=== PATIENT | female | born 1995 | race Caucasian/White ===

== ENCOUNTER 2018-10-26 02:22 | Emergency (ER) | payer BC, OTHER ==
[~2018-10-26] VITALS: Ht 157.5 cm; Wt 56.7 kg
--- OUTSIDE RECORDS SUMMARY | 2018-10-26 02:28 | XMS REPORT | Continuity of Care Document ---
Author Author [facility] Address [address] [place], [place] [address] Phone Care Team Providers Care Old Testament Professor Name Role Phone Roosevelt Abad MD PCP Unavailable Allergies, Adverse Reactions, Alerts Substance Reaction Severity Status No Known Drug Allergies Unknown Active Medications Medication Instructions Dosage Effective Dates (start - stop) Status Comments Aleve 220 mg capsule - Active acetaminophen 325 mg tablet take 1 tablet by oral route every 4 hours as needed - Active Problems Condition Effective Dates (start - stop) Clinical Status Pelvic and perineal pain Procedures Procedure Date Office/outpatient visit,[facility] Results Test Name Date and Time Measure Units Reference Range Abnormal Flag Comments Unknown Advance Directives Directive Yes / No Effective Date File Name Unknown Encounters Encounter Description Practice Location Reason(s) For Visit Diagnoses Date Provider Care Team Members Office/outpatient visit,[facility] [place], [address], [place], [address], tel:[phone] [facility] pelvic pain (chief complaint) Pelvic and perineal pain Raven Lyman. [address] [place], [place], [address], [place]. tel:[phone] Referring Provider: Nura Farah [address] [place], [place], [address]. tel:[phone] [facility] [employer] [place], [address], [place], [address], tel: [phone] [facility] [place] Raven Lyman. [address] [place], [address], [place]. tel:[phone] Family History Family Member Diagnosis Age At Onset No family history of Thyroid Disorder No family history of Kidney Problems No family history of Cardiovascular Disease No family history of Stroke No family history of Diabetes No family history of Colon Cancer No family history of Epilepsy No family history of Lung Disease No family history of Breast Cancer No family history of Ovarian Cancer No family history of Osteoporosis No family history of Hypertension Immunizations Vaccine Date Status Comments Unknown Payers Payer name Insurance type Covered alliance party ID Authorization(s) [facility] KENA [id number] Social History Type Description Quantity Date Captured Alcohol Use Details No Caffeine Use Details Unknown Tobacco Use Status Never smoked tobacco Smoking Status Never smoker Vital Signs Date / Time: Height Weight BMI Pulse Rate Blood Pressure Temperature Respiratory Rate Body Surface Area Head Circumference BMI percentile 9:07 AM 62.00 in 131.30 lbs 24.16 kg/meter(2) 122/72 mm[Hg] Chief Complaint And Reason For Visit Most recent encounter only, dated '06/26/2017 09:00'. pelvic pain (chief complaint). Description: The pain started suddenly 5days. Severity level is moderate. It occurs continuously. Region of the pain is right lower quadrant. The pain radiates to the back. The patient describes her pain as sharp, and stabbing. This is a new problem for her. She is also experiencing dysmenorrhea. She denies abdominal distention, constipation, diarrhea, dysuria, fever, hematochezia, high risk sexual activity, intramenstrual bleeding, nausea, ovarian cysts, vaginal discharge and vomiting. pt states taking aleve around the clock for 5 daysand this has provided no relief. stats she had a CT 06/23 at ER and was told she may have ovarian cyst but would need pelvic sono to confirm. Reason For Referral Reason For Referral Unknown Plan Of Care Date Type Action Status Appointment Hui Villagran BOOKED Future Order: Radiology Order Pelvic Ultrasound ([id number]) Ordered Date Type Problem Goal Intervention Status Start Date Unknown. History Of Present Illness Encounter Date Complaint History Of Present Illness pelvic pain The pain started suddenly 5days. Severity level is moderate. It occurs continuously. Region of the pain is right lower quadrant. The pain radiates to the back. The patient describes her pain as sharp, and stabbing. This is a new problem for her. She is also experiencing dysmenorrhea. She denies abdominal distention, constipation, diarrhea, dysuria , fever, hematochezia, high risk sexual activity, intramenstrual bleeding, nausea, ovarian cysts, vaginal discharge and vomiting. pt states taking aleve around the clock for 5 daysand this has provided no relief. stats she had a CT 06/23 at ER and was told she may have ovarian cyst but would need pelvic sono to confirm. Functional Status Encounter Date Functional Assessment Cognitive Assessment Unknown Medications Administered Medication Instructions Dosage Effective Dates (start - stop) Status Comments Drug Treatment Unknown Instructions Date Instruction Additional Information Unknown
--- OUTSIDE RECORDS SUMMARY | 2018-10-26 02:28 | XMS REPORT | Continuity of Care Document ---
Author Author [facility] Organization [facility] Address Unknown Phone Unavailable Care Team Providers Care Facility Technician Name Role Phone Shanita Abad MD PCP Unavailable Allergies, Adverse Reactions, Alerts Substance Reaction Severity Status No Known Drug Allergies Unknown Active Medications Medication Instructions Dosage Effective Dates (start - stop) Status Comments Aleve 220 mg capsule - Active acetaminophen 325 mg tablet take 1 tablet by oral route every 4 hours as needed - Active Problems Condition Effective Dates (start - stop) Clinical Status Abnormal Pap, LSIL - Abnormal Pap, LSIL Encounter for test, result negative - Pelvic and perineal pain Procedures Procedure Date Colposcpy Of Cervix W/ Upper/adj Vagina; W/Bx Of Cervix & Endocervical Curettage Procedure Only Visit Urine test Results Test Name Date and Time Measure Units Reference Range Abnormal Flag Comments Panel Description: Surgical Order ROJELIO 10:12:00 See Note . Joce Mckeon DO, Medical. Director. [facility]. [facility] [address] [facility] [facility] [address]. CLIA #[id number]. [address] [address] CLIA #[id number]. [facility]. [employer] [facility] [address] [facility],. [address] CLIA #[id number]. Number [id number]. Page 1 of 1Final Surgical Pathology ReportDiagnosis:A. Endocervix, ECC:. Fragments of negative endocervix and benign superficial squamous. epithelium.. No evidence of dysplasia or malignancy is identified.B. Cervix, biopsy:. Low- grade squamous intraepithelial lesion (JERMAN I). Transformation zone is identified.Clinical Information:A. Endocervical curettage. B. Cervical biopsy.Diagnosis code R87.612. Date of last pap on 06/26/2017 result LSIL.Source:A. ENDOCERVICAL CURETTINGSB. CERVICAL BIOPSYGross Description:A. Received in formalin in a container labeled "Hui Villagran" and"ECC" and is 0.1 x 0.1 x less than 0.1 cm aggregate of mucinous,semitranslucent material. Submitted in toto in lens paper in cassetteA1.B. Received in formalin in a container labeled "Hui Villagran" and"cervical biopsy" is an irregular piece of rubbery joseph-yellow totan-white tissue, 0.4 x 0.3 x 0.2 cm. Submitted in toto in lens paperin cassette B1. POK/mg 08/19/2017 2:38 PM job [id number] Description:Microscopic examination is performed. ML/mg 10:19 AM [id number] diagnosis was rendered at [address], [facility] # [id number]..<Sign Out Dr. Young>SHANITA TINOCO MD ph: [phone]/20/2017. Printed: 08/20/2017 11:18 AMASL4 SOURCE LEVEL 4 CPT: 20386 x 2.BSL4 SOURCE LEVEL 4 CPT: 87620 x 2Procedure Date 08/19/2017Received Date 08/19/2017 HUI VILLAGRAN BReported Date 08/20/2017. MR # [id number]. Case # [id number] Pat Type XLocation [facility] Sex F 1995[facility] [employer] [facility] ON[facility] Age 22 YUnit P4297 Physician NURA MEDINA MD Advance Directives Directive Yes / No Effective Date File Name Unknown Encounters Encounter Description Practice Location Reason(s) For Visit Diagnoses Date Provider Care Team Members [facility], [address], [place], [place], [address], [place] tel: [phone] [facility] colposcopy (chief complaint) Abnormal Pap, LSILAbnormal Pap, LSILEncounter for test, result negative 2017 Raven Lyman. [address], [place], [address], . tel:[phone] Referring Provider: Nura Farah [address] [place], [place], [address]. tel:[phone] [facility], [address], [place], [place], [address], tel: [phone] [facility] Pelvic and perineal pain Raven Lyman. [address], [place], [address], . tel:[phone] Referring Provider: Nura Farah [address] [place], [place], [address]. tel:[phone] [facility], [address], [place], [place], [address], tel: [phone] [facility] Raven Lyman. [address], [place], [address], . tel:[phone] Family History Family Member Diagnosis Age At [...] Unknown Payers Payer name Insurance type Covered republican ID Authorization(s) [facility] [place] BL [id number] Social History Type Description Quantity Date Captured Alcohol Use Details No Caffeine Use Details No Tobacco Use Status Never smoked tobacco Smoking Status Never smoker Non-Smoking Tobacco Use Details : No Details Available : No Details Available Vital Signs Date / Time: Height Weight BMI Pulse Rate Blood Pressure Temperature Respiratory Rate Body Surface Area Head Circumference BMI percentile 9:30 AM 62.00 in 135.00 lbs 24.84 kg/meter(2) 138/82 mm[Hg] Chief Complaint And Reason For Visit Most recent encounter only, dated '08/19/2017 09:30'. colposcopy (chief complaint). Description: Patient had an abnormal pap on 2016. Level of severity is LSIL. This is a new problem for her. She has had no recent cervical treatment. She denies vaginal discharge and vaginal itching. Reason For Referral Reason For Referral Unknown Plan Of Care Date Type Action Status Future Order: Radiology Order Pelvic Ultrasound ([id number]) Ordered Date Type Problem Goal Intervention Status Start Date Unknown. History Of Present Illness Encounter Date Complaint History Of Present Illness colposcopy Patient had an abnormal pap on 06/26/2017. Level of severity is LSIL. This is a new problem for her. She has had no recent cervical treatment. She denies vaginal discharge and vaginal itching. Functional Status Encounter Date Functional Assessment Cognitive Assessment Unknown Medications Administered Medication Instructions Dosage Effective Dates (start - stop) Status Comments Drug Treatment Unknown Instructions Date Instruction Additional Information Unknown
--- OUTSIDE RECORDS SUMMARY | 2018-10-26 02:28 | XMS REPORT | Continuity of Care Document ---
Author Author [facility] Organization [facility] Address Unknown Phone Unavailable Care Team Providers Care Dumpster Operator Name Role Phone Roosevelt Abad MD PCP [...] Pelvic and perineal pain Procedures Procedure Date Unknown Results Test Name Date and Time Measure Units Reference Range Abnormal Flag Comments Unknown Advance Directives Directive Yes / No Effective Date File Name Unknown Encounters Encounter Description Practice Location Reason(s) For Visit Diagnoses Date Provider Care Team Members [facility] [address], [id number], tel: [phone] [facility] Raven Hayes [address], [place], [address], [place]. tel:[phone] [facility] [employer] [place], [address] [place] [address], [id number], [place] tel: [phone] [facility] Pelvic and perineal pain Raven [address], [place], [address], [place]. tel:[phone] Referring Provider: Nura Farah [address], [place], [address]. tel:[phone] [facility] [employer] [place], [address] [place] [address], [id number], tel: [phone] [facility] Raven Lmyan. [address] [place], [address], [place]. tel:[phone] Family History Family Member Diagnosis Age At [...] Unknown Payers Payer name Insurance type Covered constitution party ID Authorization(s) [facility] [id number] Social History Type Description Quantity Date Captured Unknown Vital Signs Date / Time: Height Weight BMI Pulse Rate Blood Pressure Temperature Respiratory Rate Body Surface Area Head Circumference BMI percentile Unknown Chief Complaint And Reason For Visit Unknown Chief Complaint And Reason For Visit Reason For Referral Reason For Referral Unknown Plan Of Care Date Type Action Status Appointment Hui Villagran BOOKED Future Order: Radiology Order Pelvic Ultrasound ([id number]) Ordered Date Type Problem Goal Intervention Status Start Date Unknown. History Of Present Illness Encounter Date Complaint History Of Present Illness This patient has no known history of present illness Functional Status Encounter Date Functional Assessment Cognitive Assessment Unknown Medications Administered Medication Instructions Dosage Effective Dates (start - stop) Status Comments Drug Treatment Unknown Instructions Date Instruction Additional Information Unknown
--- OUTSIDE RECORDS SUMMARY | 2018-10-26 02:28 | XMS REPORT | Continuity of Care Document ---
Author Author [facility] Organization [facility] Address Unknown Phone Unavailable Care Team Providers Care Stucco Worker Name Role Phone Roosevelt Abad MD PCP [...] and perineal pain Procedures Procedure Date Office/outpatient visit,[facility] Results Test Name Date and Time Measure Units Reference Range Abnormal Flag Comments Unknown NOTE: This patient has pending results not included in this document. Advance Directives Directive Yes / No Effective Date File Name Unknown Encounters Encounter Description Practice Location Reason(s) For Visit Diagnoses Date Provider Care Team Members Office/outpatient visit,[facility] [employer] [facility] [place], [address], [place], [address], tel:[phone] [facility] pelvic pain (chief complaint) Pelvic and perineal pain Raven [address] [place], [place], [address], [place]. tel:[phone] Referring Provider: Hai Vincent [place], [address]. tel:[phone] [facility], [address], [place], [address], [place] tel: [phone] [facility] [place], [address], [place]. tel:[phone] Family History Family Member Diagnosis Age At [...] Insurance type Covered constitution party ID Authorization(s) BOB KENA SAENZ [id number] Social History Type Description Quantity Date Captured [...] Status Future Order: Radiology Order Pelvic Ultrasound ([id number]) Ordered Date Type Problem Goal Intervention Status [...]
--- OUTSIDE RECORDS SUMMARY | 2018-10-26 02:28 | XMS REPORT | Continuity of Care Document ---
Author Author [facility] [employer] [facility] Organization [facility] Address Unknown Phone Unavailable Care Team Providers Care Aerosol Line Operator Name Role Phone Roosevelt Abad MD [...] stop) Clinical Status Abnormal Pap, LSIL - Pelvic and perineal pain Abnormal Pap, LSIL Encounter for test, result negative - Procedures Procedure Date Unknown Results Test Name Date and Time Measure Units Reference Range Abnormal Flag Comments Unknown Advance Directives Directive Yes / No Effective Date File Name Unknown Encounters Encounter Description Practice Location Reason(s) For Visit Diagnoses Date Provider Care Team Members [facility] [employer] [facility], [address], [place], [address], [place] tel: [phone] [facility] Raven Hayes [address], [place], [address], [place]. tel:[phone] [facility], [address], [place], [place], [address], [place] tel: [phone] [facility] Abnormal Pap, LSILAbnormal Pap, LSILEncounter for test, result negative Raven Hayes [address], [place], [address], [place]. tel:[phone] Referring Provider: Nura Farah [address] [place], [place], [address]. tel:[phone] [facility], [address], [place], [place], [address], [place] tel: [phone] [facility] Pelvic and perineal pain Raven Lyman. [address] [place], [place], [address], [place]. tel:[phone] Referring Provider: Nura Farah [address], [place], [place], [address]. tel:[phone] [facility], [address], [place], [place], [address], [place] tel: [phone] [facility] Raven Lyman. [address], [place], [address], [place]. tel:[phone] Family History Family Member Diagnosis Age At [...] Insurance type Covered alliance party ID Authorization(s) [place] [id number] Social History Type Description Quantity Date Captured [...] Status Future Order: Radiology Order Pelvic Ultrasound ([id number]) Ordered Date Type Problem Goal Intervention Status [...]
--- OUTSIDE RECORDS SUMMARY | 2018-10-26 02:28 | XMS REPORT | Continuity of Care Document ---
Author Author [facility] [employer] [facility] [place] Organization [facility] Address Unknown Phone Unavailable Care Team Providers Care Panel Instrument Repairer Name Role Phone Nura Carbajal MD Unavailable Unavailable Allergies, Adverse Reactions, Alerts Substance Reaction Status No Known Drug Allergies Active Medications Medication Instructions Dosage Effective Dates (start - stop) Status Comments Aleve 220 mg capsule - Active acetaminophen 325 mg tablet take 1 tablet by oral route every 4 hours as needed 325 MG - Active Problems Condition Effective Dates (start - stop) Clinical Status Comments Abnormal Pap, LSIL - Abnormal Pap, LSIL Encounter for test, result negative - Pelvic and perineal pain Procedures Procedure Date No information Results Test Name Date and Time Measure Units Reference Range Abnormal Flag Status Comments No information Advance Directives Directive Yes / No Effective Date File Name No information Encounters Encounter Description Practice Location Reason(s) For Visit Diagnoses Date Provider Providers Copied on Encounter [facility] [place], [address] [place] [address], [id number], tel: [phone] [facility] Raven Hayes [address], [place], [address], [place]. tel:[phone] [facility] [place], [address], [place], [place], [address], [place] tel: [phone] [facility] Abnormal Pap, LSILAbnormal Pap, LSILEncounter for test, result negative Raven Hayes [address] [place], [place], [address], [place]. tel:[phone] Referring Provider: Hai Vincent [address] [place], [place], [address]. tel:[phone] [facility], [address], [place], [place], [address], [place] tel: [phone] [facility] Pelvic and perineal pain Raven Lyman. [address] [place], [place], [address], [place]. tel:[phone] Referring Provider: Nura Farah, [address], [place], [place], [address]. tel:[phone] [facility], [address], [place], [place], [address], [place] tel: [phone] [facility] Raven Lyman. [address], [place], [address], [place]. tel:[phone] Family History Family Member Diagnosis Age At [...] of Hypertension Immunizations Vaccine Date Status Comments No information Payers Payer name Insurance type Covered libertarian ID Authorization(s) [facility] [id number] Social History Type Description Quantity Date Captured Comments Sex Female Vital Signs Date / Time: Height Weight BMI Pulse Rate Blood Pressure Temperature Respiratory Rate Body Surface Area Head Circumference BMI percentile Pulse Ox Inhaled Ox No information Chief Complaint And Reason For Visit No information Reason For Referral Reason For Referral No information Plan Of Treatment Date Type Action Status Appointment Hui Villagran BOOKEYAL History Of Present Illness Encounter Date Complaint History Of Present Illness No information Functional Status Date Functional Assessment No information Medications Administered Medication Instructions Dosage Effective Dates (start - stop) Status Comments No information Instructions Date Instruction Additional Information No information Assessments Type Assessment Date No information Goals Health Concern Goal Type Priority Status Date No information Medical Equipment Description Device [place] Device Identifier Effective Dates (start - stop ) Status No information Mental Status Date Cognitive Assessment No information Health Concerns Observation Date No information Concern Status Date No information
--- OUTSIDE RECORDS SUMMARY | 2018-10-26 02:28 | XMS REPORT | Continuity of Care Document ---
Author Author [facility] [place] Organization [facility] Address Unknown Phone Unavailable Care Team Providers Care Food Specialist Name Role Phone Roosevelt Abad MD PCP [...] Date Provider Care Team Members [facility] [address] [place] [address], [id number], tel: [phone] [facility] Medardo Alba. [address] [place], [place], [address], [place]. tel:[phone] [facility] [employer] [place], [address] [place] [address], [id number], [place] tel: [phone] [facility] Pelvic and perineal pain Raven Lyman. [address] [place], [place], [address], [place]. tel:[phone] Referring Provider: Nura Farah, [address] [place], [address]. tel:[phone] [facility] [employer] [place], [address], [place], [address], [place] tel: [phone] [facility] Raven Lyman. [address] [place], [address], [place]. [phone] Family History Family Member Diagnosis Age At [...] Insurance type Covered constitution party ID Authorization(s) [facility] [id number] Social History Type Description Quantity Date Captured [...] BOOKED Future Order: Radiology Order Pelvic Ultrasound ([id number]) Ordered Date Type Problem Goal Intervention Status [...]
--- OUTSIDE RECORDS SUMMARY | 2018-10-26 02:28 | XMS REPORT | Continuity of Care Document ---
Author Author [facility] Organization [facility] Address Unknown Phone Unavailable Care Team Providers Care Construction Sales Representative Name Role Phone Roosevelt Abad MD PCP [...] Date Provider Care Team Members [facility] [address], [id number], tel: [phone] [facility] Raven Hayes [address], [place], [id number], [place]. tel:[phone] [facility], [address] [place] [address], [id number], [place] tel: [phone] [facility] Pelvic and perineal pain Raven [address], [place], [id number], [place]. tel:[phone] Referring Provider: Nura Farah [address], [place], [id number]. tel:[phone] [facility] [place], [address] [place] [address], [id number], tel: [phone] [facility] Raven Lyman. [address] [place], [id number], [place]. tel:[phone] Family History Family Member Diagnosis Age At [...] name Insurance type Covered republican ID Authorization(s) [facility] [id number] Social History Type Description Quantity Date Captured [...] BOOKED Future Order: Radiology Order Pelvic Ultrasound ([id number]) Ordered Date Type Problem Goal Intervention Status [...]
--- OUTSIDE RECORDS SUMMARY | 2018-10-26 02:28 | XMS REPORT | Continuity of Care Document ---
Author Author [facility] Organization [facility] Address [address], [place] [id number] Phone Care Team Providers Care Automotive Production Worker Name Role Phone Roosevelt Abad MD [...] Abnormal Pap, LSIL - Abnormal Pap, LSIL Pelvic and perineal pain Procedures Procedure Date Colposcpy Of Cervix W/ Upper/adj Vagina; W/Bx Of Cervix & Endocervical Curettage Procedure Only Visit Results Test Name Date and Time Measure Units Reference Range Abnormal Flag Comments Unknown Advance Directives Directive Yes / No Effective Date File Name Unknown Encounters Encounter Description Practice Location Reason(s) For Visit Diagnoses Date Provider Care Team Members [facility], [address], [place], [place], [id number], [place] tel: [phone] [facility] colposcopy (chief complaint) Abnormal Pap, LSILAbnormal Pap, LSIL Raven Lyman. [address], [place] , [id number], [place]. tel:[phone] Referring Provider: Nura Farah, [address], [place], [id number]. tel:[phone] [facility], [address], [place], [place], [id number], tel: [phone] [facility] Pelvic and perineal pain Raven Lyman. [address] [place], [place], [id number], . tel:[phone] Referring Provider: Nura Farah, [address] [place], [place], [id number]. tel:[phone] [facility], [address], [place], [place], [id number], tel: [phone] [facility] Raven Lyman. [address] [place], [place], [id number], . tel:[phone] Family History Family Member Diagnosis Age At [...] Unknown Payers Payer name Insurance type Covered libertarian ID Authorization(s) [facility] [id number] Social History Type Description Quantity Date Captured [...] Status Future Order: Radiology Order Pelvic Ultrasound ([id number]) Ordered Date Type Problem Goal Intervention Status [...]
--- OUTSIDE RECORDS SUMMARY | 2018-10-26 02:29 | XMS REPORT | Continuity of Care Document ---
Author Author [facility] Organization [facility] Address Unknown Phone Unavailable Allergies Active Description Code Type Severity Reaction Onset Reported/Identified Relationship to Patient Clinical Status Yes No Known Drug Allergies 509257 3 N/A N/A Medications Medication Packaging Start Date Stop Date Route Dosage Sig SPRINTEC Tablet 12/14/2013 06/12/2017 take 1 tablet by oral route every day Problems There is no data. Procedures There is no data. Results Test Result Range ANTINUCLEAR ANTIBODIES, IFA - 06/09/17 13:26 COMPLETE BLOOD COUNT - 06/09/17 13:26 WBC 11.02 K/uL 4.00-12.00 RBC 4.59 M/uL 4.20-5.40 HEMOGLOBIN 13.8 g/dL 12.0-16.0 HCT 39.4 % 37.0-47.0 MCV 85.8 fL 80.0-95.0 MCH 30.1 PG 24.0-31.0 MCHC 35.0 g/dL 21.0-36.0 PLATELET COUNT 274 K/uL 150-400 RDW-CV 12.2 % 11.5-14.5 MPV 9.2 fL 6.9-10.6 NEUT % 75.5 % 55.0-70.0 LYMPH % 16.0 % 20.0-40.0 MONO% 7.7 % 2.0-8.0 EOS% 0.5 % 0.0-4.0 BASO% 0.3 % 0.0-1.0 NEUT # 8.32 K/uL 2.75-7.00 LYMPH# 1.76 K/uL 0.60-3.40 MONO# 0.85 K/uL 0.00-0.70 EOS # 0.06 K/uL 0.00-0.40 BASO # 0.03 K/uL 0.00-0.10 ANTINUCLEAR ANTIBODIES DIRECT - 06/09/17 13:49 ANTINUCLEAR ANTIBODIES DIRECT [id number] Sent to reference lab report to follow NRG TSH - 06/09/17 13:49 TSH 1.106 uIU/mL 0.358-3.740 COMPLETE BLOOD COUNT - 06/23/17 06:23 WBC 6.82 K/uL 4.00-12.00 RBC 4.61 M/uL 4.20-5.40 HEMOGLOBIN 13.8 g/dL 12.0-16.0 HCT 39.4 % 37.0-47.0 MCV 85.5 fL 80.0-95.0 MCH 29.9 PG 24.0-31.0 MCHC 35.0 g/dL 21.0-36.0 PLATELET COUNT 282 K/uL 150-400 RDW-CV 12.2 % 11.5-14.5 MPV 9.1 fL 6.9-10.6 NEUT % 57.2 % 55.0-70.0 LYMPH % 30.2 % 20.0-40.0 MONO% 10.4 % 2.0-8.0 EOS% 1.9 % 0.0-4.0 BASO% 0.3 % 0.0-1.0 NEUT # 3.90 K/uL 2.75-7.00 LYMPH# 2.06 K/uL 0.60-3.40 MONO# 0.71 K/uL 0.00-0.70 EOS # 0.13 K/uL 0.00-0.40 BASO # 0.02 K/uL 0.00-0.10 TEST, URINE - 06/23/17 06:28 TEST, URINE NEGATIVE NEGATIVE UA DIP STICK - 06/23/17 06:28 COLOR YELLOW YELLOW APPEARANCE CLEAR CLEAR SPECIFIC GRAVITY 1.025 1.005-1.025 PH 6.5 6.0-7.0 LEUKOCYTES NEGATIVE NEGATIVE NITRITE NEGATIVE NEGATIVE PROTEIN NEGATIVE NEGATIVE GLUCOSE, SERUM NEGATIVE NEGATIVE KETONE NEGATIVE NEGATIVE UROBILINOGEN 0.2 mg/dL 0.2-1.0 BILIRUBIN NEGATIVE NEGATIVE BLOOD NEGATIVE NEGATIVE COMP METABOLIC PROFILE - 06/23/17 06:54 GLUCOSE 97 mg/dL 74-106 BUN 17 mg/dL 7-18 CREATININE 0.84 mg/dL 0.60-1.00 SODIUM, SERUM 143 mmol/L 136-145 POTASSIUM 4.1 mmol/L 3.5-5.1 CHLORIDE 106 mmol/L 98-107 CARBON DIOXIDE 28.6 mmol/L 21.0-32.0 BUN / CREAT RATIO 20.2 CALC 10.0-25.0 ANION GAP 12.5 mmol/L 8.0-20.0 CALCIUM 9.0 mg/dL 8.5-10.1 TOTAL PROTEIN 7.6 g/dL 6.4-8.2 ALBUMIN 3.9 g/dL 3.4-5.0 GLOBULIN 3.7 g/dL NRG A/G RATIO 1.1 RATIO 1.1-2.2 AST (SGOT) 15 U/L 15-37 ALT (SGPT) 22 U/L 12-78 ALKALINE PHOSPHATASE 44 mg/dL 46-116 TOTAL BILIRUBIN 0.4 mg/dL 0.2-1.0 GFR >60 >=60 GFR >60 >=60 OSMOLALITY 287 NRG - 11/01/17 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 Visit Date/Time Discharge Status Pt. Type Provider Facility Loc./Unit Complaint [id number] 10/02/2018 13:48:00 10/02/2018 23:59:59 [facility] Outpatient Nura Carbajal [id number] 08/20/2017 12:49:00 08/20/2017 23:59:59 [facility] Outpatient Nura Carbajal [id number] 08/19/2017 09:30:00 08/19/2017 23:59:59 [facility] Outpatient Nura Carbajal [id number] 07/18/2017 09:15:00 07/18/2017 23:59:59 [facility] Outpatient Anjali Batres [id number] 07/18/2017 08:33:00 07/18/2017 23:59:59 [facility] Outpatient Nura Carbajal [id number] 07/08/2017 14:07:00 07/08/2017 23:59:59 [facility] Outpatient Nura Carbajal [id number] 06/26/2017 09:00:00 06/26/2017 23:59:59 [facility] Outpatient Nura Carbajal [id number] 06/26/2017 09:05:50 Document Registration [id number] 11/01/2017 15:14:00 11/01/2017 23:59:00 [facility] Outpatient UNLISTED, UNLISTED [id number] 06/23/2017 05:33:00 06/23/2017 09:35:00 [facility] Emergency Monique Ng [id number] 06/09/2017 12:52:00 06/09/2017 23:59:00 [facility] Outpatient Viv Bejarano [id number] 06/23/2017 07:23:00 Document Registration [id number] 06/09/2017 14:26:00 Document Registration
[2018-10-26 02:47] LABS: BILIRUBIN,URINE NEGATIVE (NEGATIVE); CLARITY,URINE CLEAR; COLOR,URINE YELLOW; GLUCOSE, URINE (UA) NEGATIVE (NEGATIVE); KETONES,URINE NEGATIVE (NEGATIVE); LEUKOCYTE ESTERASE ,URINE NEGATIVE (NEGATIVE); NITRITE,URINE NEGATIVE (NEGATIVE); PH,URINE 7 (5-9); PROTEIN,URINE NEGATIVE (NEGATIVE); UROBILINOGEN,URINE NORMAL (NORMAL)
[2018-10-26] MEDS ORDERED: ONDANSETRON 4 MG (ZOFRAN) ORAL DISSOLVE TAB PO STA (02:53)
[2018-10-26 02:56] LABS: BACTERIA,URINE TRACE /HPF
[2018-10-26] MEDS ORDERED: ONDA4TAB11 PO (03:27)
--- NOTE | 2018-10-26 03:28 | ED GI ---
General Chief Complaint: Abdominal/GI Problems Stated Complaint: VOMITING Nursing Triage Note: AMBULATORY TO ED WITH C/O VOMITING SINCE MIDNIGHT. DENIES ABD PAIN AND DIARRHEA. DRANK 2 BEERS EARLIER, THEN WATER WITH DINNER. 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 Sepsis Screen: No Definite Risk Source of Information: Patient Exam Limitations: No Limitations History of Present Illness Date Seen by Provider: Oct 26, 2018 Time Seen by Provider: 02:43 Initial Comments PT ARRIVES VIA POV FROM HOME STATES SHE WOKE UP AT MIDNIGHT AND HAD NAUSEA AND HAS VOMITED X 4 WITH DRY HEAVES X 1 NO DIARRHEA NO ABDOMINAL PAIN NO FEVER NO PROBLEMS URINATING, VOIDED ON ARRIVAL, AND LAST VOID WAS AROUND 1930 PT HAD A COUPLE OF BEERS TONIGHT AND ATE AT [employer] EARLIER THIS EVENING. 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 PCP: [facility] Allergies and Home Medications Allergies Coded Allergies: No Known Drug Allergies (Unverified , 10/26/18) Home Medications Ondansetron 4 Mg Tab.rapdis, 4 MG PO Q4H Prescribed by: RANDI PICKETT on 10/26/18 0327 Patient Home Medication List Home Medication List Reviewed: Yes Review of Systems Review of Systems Constitutional: no symptoms reported Respiratory: No Symptoms Reported Cardiovascular: No Symptoms Reported Gastrointestinal: See HPI; Denies Abdominal Pain, Denies Diarrhea; Nausea, Vomiting Genitourinary: No Symptoms Reported Musculoskeletal: no symptoms reported Skin: no symptoms reported Psychiatric/Neurological: No Symptoms Reported Endocrine: No Symptoms Reported Past Vseoxmj-Hzdmwd-Iomfhs Hx Patient Social History Alcohol Use: Occasionally Uses Recreational Drug Use: No Smoking Status: Never a Smoker Recent Foreign Travel: No Contact w/Someone Who Travel: No Recent Infectious Disease Expo: No Recent Hopitalizations: No Seasonal Allergies Seasonal Allergies: No Past Medical History Surgeries: Yes (2 RIGHT KNEE SCOPES) Orthopedic Respiratory: No Cardiac: No Neurological: No Genitourinary: No Gastrointestinal: No Musculoskeletal: Yes (RIGHT KNEE SCOPE X 2) Endocrine: No HEENT: No Cancer: No Psychosocial: No Integumentary: No Blood Disorders: No Physical Exam Vital Signs Vital Signs - First Documented 10/26/18 10/26/18 02:35 03:35 Temp 97.5 Pulse 89 Resp 18 B/P (MAP) 130/73 (92) Pulse Ox 100 O2 Delivery Room Air Capillary Refill : Less Than 3 Seconds Height/Weight/BMI Height: 5'2.00" Weight: 125lbs. oz. 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, no motor/sensory deficits, alert, normal mood/affect, oriented x 3 Skin: normal color, warm/dry; No rash Progress/Results/Core Measures Results/Orders Lab Results Laboratory Tests Test 10/26/18 02:35 Range/Units Urine Color YELLOW Urine Clarity CLEAR Urine pH 7 5-9 Urine Specific [place] 1.010 L 1.016-1.022 Urine Protein NEGATIVE NEGATIVE Urine Glucose (UA) NEGATIVE NEGATIVE Urine Ketones NEGATIVE NEGATIVE Urine Nitrite NEGATIVE NEGATIVE Urine Bilirubin NEGATIVE NEGATIVE Urine Urobilinogen NORMAL NORMAL MG/DL Urine Leukocyte Esterase NEGATIVE NEGATIVE Urine RBC (Auto) NEGATIVE NEGATIVE Urine RBC NONE /HPF Urine WBC NONE /HPF Urine Squamous Epithelial Cells 10-25 H /HPF Urine Crystals NONE /LPF Urine Bacteria TRACE /HPF Urine Casts NONE /LPF Urine Mucus NEGATIVE /LPF Urine Culture Indicated NO My Orders Orders - RANDI PICKETT DO Ua Culture If Indicated (10/26/18 02:43) Urine Bedside (10/26/18 02:43) Ondansetron Oral Dissolve Tab (Zofran (10/26/18 02:53) Vital Signs/I&O 10/26/18 10/26/18 02:35 03:35 Temp 97.5 97.5 Pulse 89 88 Resp 18 18 B/P (MAP) 130/73 (92) 120/58 (78) Pulse Ox 100 O2 Delivery Room Air Room Air Blood Pressure Mean: 92 Progress Progress Note : Progress Note GIVEN ZOFRAN ODT--NAUSEA RESOLVED, PT TOLERATING WATER AND ICE CHIPS PRIOR TO DISMISSAL Departure Impression Primary Impression: Nausea and vomiting Disposition: 01 HOME, SELF-CARE Condition: Improved Departure-Patient Inst. Referrals: NO,LOCAL PHYSICIAN (PCP/Family) Primary Care Physician Patient Instructions: Nausea and Vomiting, Adult (DC) Add. Discharge Instructions: CLEAR LIQUIDS--WATER, BROTH, JELLO, GATORADE WHEN NAUSEA IS GONE, ADD BRATS DIET TO CLEAR LIQUIDS--BANANAS, RICE, APPLESAUCE , TOAST, SALTINES FOLLOW UP WITH YOUR DR ON SATURDAY IF NO BETTER, RETURN TO ER IF WORSE All discharge instructions reviewed with patient and/or family. Voiced understanding. Scripts Ondansetron (Ondansetron Odt) 4 Mg Tab.rapdis 4 MG PO Q4H for Nausea/Vomiting, #10 TAB Prov: RANDI PICKETT DO 10/26/18 RANDI PICKTET DO Oct 26, 2018 03:28
[2018-10-26 03:35] VITALS: BP 120/58
== END 2018-10-26 03:35 | disposition home or self-care (01) ==
LOC: ER 02:23
DX: R11.2 Nausea with vomiting, unspecified (principal)
CPT/HCPCS: 81000; 84703; 99283